=== PATIENT | male | born 1970 | race African-American/Black ===

== ENCOUNTER 2019-12-13 06:02 | Observation (INO) | payer MEDICARE, MEDICAID ==
[2019-12-10 08:20] VITALS: BMI 27.6
[2019-12-13 06:43] LABS: #Basophils 0.1 thou/uL (0.0-0.2); #Eosinphils 0.1 thou/uL (0.0-0.7); #Lymphocytes 2.8 thou/uL (1.20-3.40); #Monocytes 0.7 thou/uL (0.11-0.59); #Neutrophils 9.8 thou/uL (1.40-6.50); %Basophils 0.5 % (0.0-1.0); %Eosinophils 0.8 % (0.0-10.0); %Lymphocytes 20.7 % (21.0-51.0); %Monocytes 5.2 % (0.0-10.0); %Neutrophils 72.8 % (42.0-75.0); Hemoglobin 14.8 g/dL (14.0-18.0); Mean Corpuscular HGB CONC 32.3 g/dL (32.0-36.0); Mean Corpuscular Hemoglobin 31.8 pg (27.0-31.0); Mean Corpuscular Volume 98.4 fL (78.0-98.0); Mean Platelet Volume 7.8 fL (7.4-10.4); Platelet Count 165 thou/uL (130-400); Red Blood Cell (RBC) Count 4.65 mill/uL (4.70-6.10); White Blood Cell (WBC) Count 13.5 thou/uL (4.8-10.8)
[2019-12-13 07:14] LABS: Anion Gap 9 mmol/L (10-20); BUN (Urea Nitrogen) 9 mg/dL (8.9-20.6); Calc. Creatinine Clearance 110 mL/min (70-130); Carbon Dioxide 27 mmol/L (22-29); Chloride 107 mmol/L (98-107); Estimated GFR-MDRD Greater than 90; Glucose 81 mg/dL (70-105); Potassium 3.8 mmol/L (3.5-5.1); Sodium 139 mmol/L (136-145)
[2019-12-13] MEDS ORDERED: Fentanyl 100 MCG/2 ML VIAL ONE ×4 (08:40→11:20)
[2019-12-13] MEDS ORDERED: Midazolam HCl 2 mg/2 ml Vial ONE (08:40)
[2019-12-13] MEDS ORDERED: Ondansetron PF 4 MG/2 ML Vial ONE (09:58)
[2019-12-13] MEDS ORDERED: Glycopyrrolate 0.2 MG/ML 5 ML SYRINGE ONE (09:58)
[2019-12-13] MEDS ORDERED: PROPOFOL 200 MG/20 ML VIAL ONE (09:58)
[2019-12-13] MEDS ORDERED: Dexamethasone 20 MG/5 ML VIAL ONE (09:58)
[2019-12-13] MEDS ORDERED: Rocuronium Bromide 10 MG/ML (10ML VIAL) ONE (09:58)
[2019-12-13] MEDS ORDERED: Ketorolac Tromethamine 30 MG/ML VIAL ONE (09:58)
[2019-12-13] MEDS ORDERED: Lidocaine 1% PF 5 ML VIAL ONE (09:58)
[2019-12-13] MEDS ORDERED: Promethazine HCl 25 MG/ML VIAL IM PRN ×2 (10:03→12:40)
[2019-12-13] MEDS ORDERED: Ondansetron HCl/PF 4 MG/2 ML Vial IVP PRN (10:03)
[2019-12-13] MEDS ORDERED: Promethazine HCl 25 MG/ML VIAL SLOW IVP PRN (10:03)
--- NOTE | 2019-12-13 11:01 | OP ---
DATE OF PROCEDURE: 12/13/2019 BILLING SPECIALIST: Britany Meehan PA-C PROCEDURE PERFORMED: L4 through S1 decompressive laminectomy. DESCRIPTION OF PROCEDURE: The patient was brought to the operating room and intubated. He was rolled in a prone position on gel-filled chest rolls. An incision made in the midline exposing L4 through S1 and level was confirmed by x-ray. We performed complete L5, inferior L4, and superior S1 laminectomies. We found the expected epidural lipomatosis, which was resected. A complete decompression was achieved. The wound was then extensively irrigated and MAC hemostasis was secured. Vancomycin powder was applied and the wound was closed in anatomic layers over drain. Job ID: [id number]
[2019-12-13] MEDS ORDERED: Tamsulosin HCl 0.4 MG CAP ONE (11:27)
[2019-12-13] MEDS ORDERED: Morphine 2 MG/ML SYRINGE SLOW IVP PRN (12:40)
[2019-12-13] MEDS ORDERED: diphenhydrAMINE 50 MG/ML VIAL IVP PRN (12:40)
[2019-12-13] MEDS ORDERED: traMADol HCl 50 MG TAB PO PRN ×2 (12:40)
[2019-12-13] MEDS ORDERED: Milk Of Magnesia 30 ML UDCUP PO PRN (12:40)
[2019-12-13] MEDS ORDERED: Promethazine 25 MG TAB PO PRN (12:40)
[2019-12-13] MEDS ORDERED: tiZANidine HCl 4 MG TAB PO PRN (12:40)
[2019-12-13] MEDS ORDERED: Mag-Al 1200 mg/1200 mg/30 ML UDCUP PO PRN (12:40)
[2019-12-13] MEDS ORDERED: Ondansetron PF 4 MG/2 ML Vial IM PRN (12:40)
[2019-12-13] MEDS ORDERED: diphenhydrAMINE 25 MG CAP PO PRN (12:40)
[2019-12-13] MEDS ORDERED: HYDROcodone/Acetaminophen 10/325 mg Tablet PO PRN (12:40)
[2019-12-13] MEDS ORDERED: Morphine 4 MG/ML VIAL SLOW IVP PRN (12:40)
[2019-12-13] MEDS ORDERED: Promethazine HCl 12.5 MG SUPP PR PRN (12:40)
[2019-12-13] MEDS ORDERED: PROVENTIL INHALER 6.7 G (200 INHALATIONS) INH PRN (13:12)
[2019-12-13] MEDS: Sodium Chloride 0.9% 1,000 ML IV SCH (13:20)
[2019-12-13] MEDS: HYDROcodone/Acetaminophen 10/325 mg Tablet PO PRN ×2 (13:33→18:47)
[2019-12-13] MEDS: tiZANidine HCl 4 MG TAB PO SCH ×2 (15:25→21:23)
[2019-12-13] MEDS: CEFAZOLIN 2 GM in Premix Bag 1 BAG IVPB SCH ×2 (15:25→21:31)
[2019-12-13] MEDS: Pregabalin 75 MG CAP PO SCH ×2 (15:25→21:17)
[2019-12-13] MEDS ORDERED: Atorvastatin Calcium 40 MG TAB PO SCH (21:00)
[2019-12-13] MEDS ORDERED: Mirtazapine 30 MG TAB PO SCH (21:00)
[2019-12-13] MEDS ORDERED: Prazosin HCl 1 MG CAP PO SCH (21:00)
[2019-12-13] MEDS: Fish Oil 1,000 MG CAP PO SCH (21:18)
[2019-12-13] MEDS: risperiDONE 1 MG TAB PO SCH (21:23)
[2019-12-13] MEDS: Topiramate 25 MG TAB PO SCH (21:26)
[2019-12-13 23:30] VITALS: TEMP 98.1
[2019-12-14] MEDS: Sodium Chloride 0.9% 1,000 ML IV SCH (01:55)
[2019-12-14] MEDS ORDERED: Tamsulosin HCl 0.4 MG CAP PO SCH (06:00)
[2019-12-14] MEDS: CEFAZOLIN 2 GM in Premix Bag 1 BAG IVPB SCH (06:18)
--- NOTE | 2019-12-14 06:56 | DIS ---
DATE OF ADMISSION: 12/13/2019 DATE OF DISCHARGE: 12/14/2019 The patient is a 49-year-old male, recently evaluated in our office for lumbar stenosis with neurogenic claudication. He underwent L4 through S1 laminectomy on 12/13/2019. Following the surgery, he was transitioned to the Med-Surgery floor, where his pain has been well controlled with p.o. medications, he is tolerating regular diet, and he is voiding appropriately. He had DEISI drain placed intraoperatively with only 40 mL out over the first night. This was removed on postoperative day #1. I visited the patient the following morning. On postoperative day #1, he is awake, alert, in no acute distress. His vital signs are stable and he has been afebrile overnight. He has free active range of motion of all extremities. No focal motor weakness. Incision is clean, dry, and intact. We will plan to dismiss the patient to home. I have discussed home care precautions and we will follow up with the patient in 2 weeks. Job ID: [id number]
[2019-12-14 08:20] VITALS: BP 129/80
[2019-12-14] MEDS: Topiramate 25 MG TAB PO SCH (08:21)
[2019-12-14] MEDS: Fish Oil 1,000 MG CAP PO SCH (08:22)
[2019-12-14] MEDS: Pregabalin 75 MG CAP PO SCH (08:22)
[2019-12-14] MEDS: tiZANidine HCl 4 MG TAB PO SCH (08:24)
[2019-12-14] MEDS: risperiDONE 1 MG TAB PO SCH (08:25)
[2019-12-14] MEDS ORDERED: DULoxetine 30 MG CAP PO SCH (09:00)
[2019-12-14] MEDS ORDERED: Folic Acid 1 MG TAB PO SCH (09:00)
[2019-12-14] MEDS ORDERED: Atenolol 25 MG TAB PO SCH (09:00)
--- NOTE | 2019-12-14 11:29 | EKG ---
Test Reason : PREOP Blood Pressure : / mmHG Vent. Rate : 064 BPM Atrial Rate : 064 BPM P-R Int : 190 ms QRS Dur : 086 ms QT Int : 394 ms P-R-T Axes : 033 005 025 degrees QTc Int : 406 ms Normal sinus rhythm ST elevation, consider early repolarization Borderline ECG Confirmed by DR. René PATTERSON MD ([id number]) on 12/14/2019 11:28:47 AM Referred By: [facility] Confirmed By:DR. René PATTERSON MD
== END 2019-12-14 11:50 | disposition home or self-care (01) ==
LOC: SDC 06:02 → SURG A 12:13
PROVIDERS: ADMIT Neurological Surgery; ATTEND Neurological Surgery
PROC: 01NB0ZZ Release Lumbar Nerve, Open Approach (ICD-10-PCS; principal; 2019-12-13)
DX: M48.062 Spinal stenosis, lumbar region with neurogenic claudication (principal); E88.2 Lipomatosis, not elsewhere classified; I10 Essential (primary) hypertension; E78.5 Hyperlipidemia, unspecified; J44.9 Chronic obstructive pulmonary disease, unspecified; F17.210 Nicotine dependence, cigarettes, uncomplicated; F31.9 Bipolar disorder, unspecified; Z79.899 Other long term (current) drug therapy; Z88.6 Allergy status to analgesic agent
CPT/HCPCS: 63047; 63048; 76000; 80048; 85025; 93005; 96361 ×2; 96365; 96366; 96375; 97116; 97139 ×3; G0378 ×2; 36415; 93010; J0690; J1100; J1885; J2001; J2250; J2405; J2704; J3010; J3370